=== PATIENT | female | born 2000 ===

== ENCOUNTER 2020-11-25 16:31 | Outpatient (CLI) | payer SELFPAY ==
[~2020-11-25] VITALS: Ht 157.5 cm; Wt 79.5 kg
== END 2020-11-25 17:40 | disposition home or self-care (01) ==
LOC: LDOP 16:31
PROVIDERS: ATTEND Student in an Organized Health Care Education/Training Program
DX: O36.8130 Decreased fetal movements, third trimester, not applicable or unspecified (principal); Z3A.28 28 weeks gestation of pregnancy
CPT/HCPCS: 59025